=== PATIENT | male | born 1975 | race Two or more races ===

== ENCOUNTER 2018-10-13 21:00 | Emergency (ER) | payer OTHER ==
[~2018-10-13] VITALS: Ht 180.3 cm; Wt 133.8 kg
[2018-10-13 21:05] VITALS: BP 144/93
--- NOTE | 2018-10-13 21:09 | NUR ---
Pt presents to ed, from [facility] w/ alysha, c/o periumbilical abd pain since this am. Denies hematuria or blood in stool. Denies cp/sob. States abd pain has been intermittent since this am and is decreased at this time. States poor po intake and multiple rounds of emesis. No emesis noted in ed. Monitoring applied. Vss. Call light within reach. Awaiting provider assessment.
[2018-10-13] MEDS ORDERED: FAMOTIDINE 20 MG TABLET ONE (21:53)
[2018-10-13] MEDS ORDERED: FAMOTIDINE 20 MG TABLET PO ONE (22:00)
[2018-10-13 22:17] LABS: BASOPHILS % (AUTO) 0 % (0-1); EOSINOPHILS % (AUTO) 1 % (1-7); LYMPHOCYTES # (AUTO) 1.87 x10^3/uL (1-3.4); LYMPHOCYTES % (AUTO) 22 % (22-44); MEAN CORPUSCULAR HGB CONC 33.6 g/dL (33.2-36.2); MEAN CORPUSCULAR VOLUME 89.2 fL (81-97); MEAN PLATELET VOLUME 8.5 fL (7.4-10.4); MONOCYTES # (AUTO) 0.56 x10^3/uL (0.2-0.8); MONOCYTES % (AUTO) 6 % (2-9); NEUTROPHILS # (AUTO) 6.18 x10^3/uL (1.8-6.8); NEUTROPHILS % (AUTO) 71 % (42-75); PLATELET COUNT 208 x10^3/uL (130-400); RED CELL DISTRIBUTION WIDTH 13.6 % (9.4-14.8)
[2018-10-13 22:18] LABS: BASOPHILS # (AUTO) 0.02 x10^3/uL (0-0.1); EOSINOPHILS # (AUTO) 0.08 x10^3/uL (0-0.4); MD NO
[2018-10-13 22:29] LABS: ALANINE AMINOTRANSFERASE 20 U/L (12-78); ALBUMIN 3.6 g/dL (3.4-5.0); ANION GAP 5 mmol/L (5-15); CALCIUM 8.8 mg/dL (8.5-10.1); CHLORIDE 109 mmol/L (98-107); CREATININE 0.97 mg/dL (0.7-1.3)
[2018-10-13 22:31] LABS: ALKALINE PHOSPHATASE 63 U/L (45-117); BILIRUBIN,TOTAL 0.2 mg/dL (0.2-1.0); TOTAL PROTEIN 7.4 g/dL (6.4-8.2)
== END 2018-10-13 23:35 | disposition home or self-care (01) ==
LOC: ED 23:14
DX: R10.33 Periumbilical pain (principal); I10 Essential (primary) hypertension
CPT/HCPCS: 36415; 80053; 83690; 85025; 99283

== ENCOUNTER 2019-07-17 08:17 | Outpatient (CLI) | payer OTHER | END 2019-07-17 23:59 | disposition home or self-care (01) | LOC: RAD 08:17 | PROVIDERS: ATTEND Family Medicine Adult Medicine | DX: R22.1 Localized swelling, mass and lump, neck (principal); I10 Essential (primary) hypertension; Z88.8 Allergy status to other drugs, medicaments and biological substances | CPT/HCPCS: 76536 ==